=== PATIENT | male | born 1965 | race Asian ===

== ENCOUNTER 2016-11-07 19:01 | Emergency (ER) | payer OTHER ==
[2016-11-07 20:35] VITALS: BP 126/68
== END 2016-11-07 20:35 | disposition home or self-care (01) ==
LOC: ED 19:01
DX: S91.339A Puncture wound without foreign body, unspecified foot, initial encounter (principal); X58.XXXA Exposure to other specified factors, initial encounter; Y93.89 Activity, other specified; Y92.89 Other specified places as the place of occurrence of the external cause; Y99.8 Other external cause status